=== PATIENT | female | born 1935 | race Two or more races ===

== ENCOUNTER 2023-02-13 02:47 | Inpatient (IN) | payer OTHER ==
[~2023-02-13] VITALS: Ht 152.4 cm; Wt 56.2 kg
[~2023-02-13 02:47] MED LIST: AMIODARONE HCL200 MG; AMIODARONE HCL200 MG PO; CARDURA1 MG; CEFDINIR300 MG PO; COUMADIN4 MG; COUMADIN4 MG PO; DILTIAZEM 24HR240 MG; DILTIAZEM 24HR240 MG PO; DILTIAZEM ER180 M1; FLOVENT DISKU100 MCG IH; HYZAAR 100-251 UDTAB; Intestinex CAP PO; KAYEXALATE15 GM/60 M; LEVALBUTER0.63 MG/3; LEVOTHYROXINE112 MCG PO; LOSARTAN POTAS100 MG PO; MONTELUKAST SOD10 MG PO; SIMVASTATIN20 MG; SIMVASTATIN20 MG PO; SINGULAIR 10MG10 MG; SYNTHROID100 MCG; SYNTHROID112 MCG; TEGRETOL200 MG; TEGRETOL200 MG PO; XOPENEX HFA15 GM IH; XOPENEX0.63 MG/3 IH; ZOCOR40 MG; [UNRECOGNIZED DRUG - OTHER]
[2023-02-15] MEDS ORDERED: XOPENEX0.63 MG/3 IH (13:28)
[2023-02-15] MEDS ORDERED: CARTIA XT240 MG PO (13:28)
[2023-02-15] MEDS ORDERED: MONTELUKAST SOD10 MG PO (13:28)
[2023-02-15] MEDS ORDERED: DOXAZOSIN MESYLA8 MG PO (13:28)
[2023-02-15] MEDS ORDERED: LEVOTHYROXINE112 MCG PO (13:28)
[2023-02-15] MEDS ORDERED: IPRATROPIU0.2 MG/1 M IH (13:28)
[2023-02-15] MEDS ORDERED: FLOVENT DISKU100 MCG IH (13:28)
[2023-02-15] MEDS ORDERED: MEDROL2 MG PO (13:28)
[2023-02-15] MEDS ORDERED: LOSARTAN-HCTZ1 EAC2 PO (13:28)
[2023-02-15] MEDS ORDERED: ELIQUIS2.5 MG PO (13:28)
[2023-02-15] MEDS ORDERED: SIMVASTATIN20 MG PO (13:28)
[2023-02-15] MEDS ORDERED: AMIODARONE HCL200 MG PO (13:28)
[2023-02-15] MEDS ORDERED: BUDESONIDE0.5 MG/2 M IH (13:28)
[2023-02-15] MEDS ORDERED: HYDRALAZINE HCL25 MG PO (13:28)
[2023-02-15] MEDS ORDERED: TEGRETOL200 MG PO (13:28)
[2023-02-15] MEDS ORDERED: Intestinex CAP PO (13:28)
== END 2023-02-16 10:47 | disposition home or self-care (01) | DRG 305 ==
LOC: ER 02:47 → MEDI 16:21
PROVIDERS: ADMIT Internal Medicine; ATTEND Internal Medicine
PROC: B24BZZZ Ultrasonography of Heart with Aorta (ICD-10-PCS; principal; 2023-02-13)
DX: I16.1 Hypertensive emergency (principal); I12.9 Hypertensive chronic kidney disease with stage 1 through stage 4 chronic kidney disease, or unspecified chronic kidney disease; N18.30 Chronic kidney disease, stage 3 unspecified; E03.9 Hypothyroidism, unspecified; I48.91 Unspecified atrial fibrillation; Z74.01 Bed confinement status